=== PATIENT | male | born 1960 | race Caucasian/White ===

== ENCOUNTER 2022-04-09 06:20 | Day surgery (SDC) | payer OTHER ==
[~2022-04-09 06:20] MED LIST: Lactated Ringers 1,000 ML IV SCH; Sodium Chloride 0.9% 10 ML Syringe FLUSH PRN
[2022-04-09] MEDS ORDERED: Propofol 200 MG/20 ML SDV IV ONE (06:21)
[2022-04-09 07:07] VITALS: BP 118/76; PULSE 90
== END 2022-04-09 09:15 | disposition home or self-care (01) ==
LOC: FB.SDS 06:20
PROVIDERS: ATTEND Surgery
DX: Z12.11 Encounter for screening for malignant neoplasm of colon (principal); K63.5 Polyp of colon; K62.1 Rectal polyp; K57.30 Diverticulosis of large intestine without perforation or abscess without bleeding; K40.90 Unilateral inguinal hernia, without obstruction or gangrene, not specified as recurrent; E78.5 Hyperlipidemia, unspecified; I25.10 Atherosclerotic heart disease of native coronary artery without angina pectoris; K21.9 Gastro-esophageal reflux disease without esophagitis; I21.9 Acute myocardial infarction, unspecified; Z86.010 Personal history of colon polyps; Z79.899 Other long term (current) drug therapy; Z86.73 Personal history of transient ischemic attack (TIA), and cerebral infarction without residual deficits; Z98.890 Other specified postprocedural states; Z87.891 Personal history of nicotine dependence
CPT/HCPCS: 00812; 88305; 93005; 93010; J2704; J7120

== ENCOUNTER 2023-02-11 07:15 | Day surgery (SDC) | payer OTHER ==
[2023-02-11] MEDS ORDERED: Citric Acid/Sodium Citrate Solution 30 ML Cup PO ONE (07:16)
[2023-02-11] MEDS ORDERED: Midazolam 1 MG/ML 2 ML SDV IV ONE (07:16)
[2023-02-11] MEDS ORDERED: Lactated Ringers 1,000 ML IV ONE (07:16)
[2023-02-11] MEDS ORDERED: Labetalol 100 MG/20 ML MDV IV ONE (07:16)
[2023-02-11] MEDS ORDERED: Propofol 200 MG/20 ML SDV IV ONE (07:16)
[2023-02-11] MEDS ORDERED: fentaNYL 100 MCG/2 ML SDV IV ONE (07:16)
[2023-02-11 08:11] VITALS: BP 124/91
[2023-02-11] MEDS ORDERED: ceFAZolin 2 GM Vial IVPUSH ONE (08:30)
[2023-02-11] MEDS ORDERED: ceFAZolin 2 GM in Sodium Chloride 0.9% 100 ML IV ONE (08:30)
[2023-02-11] MEDS ORDERED: Bupivacaine 0.5% 30 ML SDV INJECT ONE (09:27)
[2023-02-11] MEDS ORDERED: Lidocaine 1% with EPINEPHrine 1:100,000 20 ML MDV INJECT ONE (09:27)
== END 2023-02-11 12:14 | disposition home or self-care (01) ==
LOC: FB.SDS 07:15
PROVIDERS: ATTEND Surgery
DX: K40.30 Unilateral inguinal hernia, with obstruction, without gangrene, not specified as recurrent (principal); D17.6 Benign lipomatous neoplasm of spermatic cord; I48.91 Unspecified atrial fibrillation; I25.2 Old myocardial infarction; I25.10 Atherosclerotic heart disease of native coronary artery without angina pectoris; K21.9 Gastro-esophageal reflux disease without esophagitis; Z87.891 Personal history of nicotine dependence; Z79.82 Long term (current) use of aspirin; Z79.01 Long term (current) use of anticoagulants; Z79.899 Other long term (current) drug therapy; Z88.8 Allergy status to other drugs, medicaments and biological substances
CPT/HCPCS: 00840; 49507; 55520; 88304; A9270; C1781; J0690; J2250; J2704; J3010; J3490; J7120

== ENCOUNTER 2024-01-16 17:46 | Emergency (ER) | payer OTHER ==
[2024-01-16] MEDS ORDERED: Meclizine 25 MG Tab PO ONE (17:47)
[2024-01-16 18:09] VITALS: BP 119/75; PULSE 97
[2024-01-16 18:39] LABS: BASOPHILS PERCENT AUTO 0.4 % (0.3-3.8); EOSINOPHILS PERCENT AUTO 0.3 % (0.1-6.8); HEMATOCRIT 43.2 % (38.3-50.1); LYMPHOCYTES ABSOLUTE AUTO 0.8 x10-3/uL (0.5-4.5); LYMPHOCYTES PERCENT AUTO 12.6 % (15.8-45.3); MEAN CORPUSCULAR HGB CONC 34.6 g/dL (28.7-35.3); MEAN CORPUSCULAR VOLUME 92.6 fL (80.8-98.7); MEAN PLATELET VOLUME 7.4 fL (6.7-11.0); MONOCYTES ABSOLUTE AUTO 0.7 x10-3/uL (0.0-1.2); NEUTROPHILS ABSOLUTE AUTO 5.1 x10-3/uL (1.7-6.9); NEUTROPHILS PERCENT AUTO 76.7 % (40.3-71.8); PLATELET COUNT,PLT 180 x10(3)uL (117-477); RED BLOOD CELL COUNT 4.67 x10(6)uL (3.90-5.90); RED CELL DISTRIBUTION WIDTH 13.3 % (12.4-15.0); WHITE BLOOD CELL COUNT,WBC 6.6 x10-3/uL (3.2-10.1)
[2024-01-16 18:45] LABS: BLOOD UREA NITROGEN,BUN 38 mg/dL (7-18); CALCIUM 9.1 mg/dL (8.6-10.2); CARBON DIOXIDE,CO2 21 mmol/L (21-32); CHLORIDE,CL 103 mmol/L (100-110); CREATININE 1.9 mg/dL (0.70-1.30); ESTIMATED GFR 39 mL/min (>60); GLUCOSE RANDOM 99 mg/dL (80-116); POTASSIUM,K 3.8 mmol/L (3.5-5.3); SODIUM,NA 135 mmol/L (135-145)
[2024-01-16 18:51] LABS: A/G RATIO 1.1; ALANINE AMINOTRANSFERASE,ALT 35 U/L (12-36); ALBUMIN 3.6 g/dL (3.2-4.6); ALKALINE PHOSPHATASE 80 IU/L (56-112); ASPARTATE AMNIOTRANSFERASE,AST 16 IU/L (5-25); BILIRUBIN TOTAL 0.7 mg/dL (0.1-1.3); PROTEIN TOTAL,TP 6.9 g/dL (6.0-8.0)
[2024-01-16] MEDS: Meclizine 25 MG Tab PO ONE (19:08)
== END 2024-01-16 20:45 | disposition home or self-care (01) ==
LOC: FB.ED 17:46
DX: R42 Dizziness and giddiness (principal); I48.91 Unspecified atrial fibrillation; I25.10 Atherosclerotic heart disease of native coronary artery without angina pectoris; E78.00 Pure hypercholesterolemia, unspecified; I10 Essential (primary) hypertension; I25.2 Old myocardial infarction; K21.9 Gastro-esophageal reflux disease without esophagitis; Z79.82 Long term (current) use of aspirin; Z79.899 Other long term (current) drug therapy; Z88.1 Allergy status to other antibiotic agents
CPT/HCPCS: 36415; 80053; 84484; 85025; 93005; 99284; A9270